=== PATIENT | female | born 1995 | race Caucasian/White ===

== ENCOUNTER 2017-01-05 09:54 | Inpatient (IN) | payer SELFPAY ==
[2017-01-05] MEDS ORDERED: MISOPROSTOL 0.2 MG TABLET ONE (11:40)
[2017-01-05] MEDS ORDERED: OXYTOCIN/NORMAL SALINE 20 UNIT/1,000 ML RTUINJ ONE (11:40)
[2017-01-05] MEDS ORDERED: LIDOCAINE 1% INJ-PF (10 MG/ML) 30 ML SDV ONE (11:40)
[2017-01-05] MEDS ORDERED: PENICILLIN G-K 5 MILLION UNIT VIAL ONE (11:43)
[2017-01-05 12:23] LABS: ADD HIVPANEL? NO; HIV (1 AND 2) ANTIBODY NEGATIVE (NEGATIVE)
[2017-01-05] MEDS ORDERED: PENICILLIN G POTASSIUM 5,000,000 UNIT in DEXTROSE 5%-WATER 100 ML IV ONE (13:18)
[2017-01-05] MEDS ORDERED: MAGNESIUM HYDROXIDE SUSP 30 ML UDCUP PO PRN (14:13)
[2017-01-05] MEDS ORDERED: PROMETHAZINE HCL 25 MG SUPP.RECT PR PRN (14:13)
[2017-01-05] MEDS ORDERED: PSEUDOEPHEDRINE HCL 30 MG TABLET PO PRN (14:13)
[2017-01-05] MEDS ORDERED: ACETAMINOPHEN WITH CODEINE #3 TABLET PO PRN ×2 (14:13)
[2017-01-05] MEDS ORDERED: NA PHOS,M-B/NA PHOS,DI-BA (ADULT) 133 ML ENEMA PR PRN (14:13)
[2017-01-05] MEDS ORDERED: OXYTOCIN/NORMAL SALINE 20 UNIT/1,000 ML RTUINJ IV PRN (14:13)
[2017-01-05] MEDS ORDERED: ZOLPIDEM TARTRATE 5 MG TABLET PO PRN (14:13)
[2017-01-05] MEDS ORDERED: BENZOCAINE/MENTHOL AEROSOL SPRAY 56 ML TOP PRN (14:13)
[2017-01-05] MEDS ORDERED: MEASLES,MUMPS&RUBELLA VACC/PF 0.5 ML VIAL SUBCUT PRN (14:13)
[2017-01-05] MEDS ORDERED: DIPH/PERTUSS(ACELL)/TETANUS VAC/PF 0.5 ML SYR (>=10YO) IM PRN (14:13)
[2017-01-05] MEDS ORDERED: PROMETHAZINE HCL INJ 25 MG/1 ML VIAL IV PRN (14:13)
[2017-01-05] MEDS ORDERED: PROMETHAZINE HCL 25 MG TABLET PO PRN (14:13)
[2017-01-05] MEDS ORDERED: ACETAMINOPHEN 650 MG SUPP.RECT PR PRN (14:13)
[2017-01-05] MEDS ORDERED: GLYCERIN/WITCH HAZEL LEAF 1 EACH MED..PAD TP PRN (14:13)
[2017-01-05] MEDS ORDERED: DIBUCAINE 1% OINTMENT 28 GM TP PRN (14:13)
[2017-01-05] MEDS ORDERED: DIPHENHYDRAMINE HCL 25 MG CAPSULE PO PRN (14:13)
[2017-01-05 14:27] LABS: APPEARANCE,URINE CLOUDY; BILIRUBIN,URINE NEGATIVE (NEGATIVE); GLUCOSE, URINE NEGATIVE (NEGATIVE); KETONES,URINE 20 mg/dL (NEGATIVE); LEUKOCYTE ESTERASE,URINE NEGATIVE (NEGATIVE); NITRITE,URINE NEGATIVE (NEGATIVE); PROTEIN,URINE NEGATIVE (NEGATIVE); URINE SPECIFIC GRAVITY 1.013; UROBILINOGEN,URINE NEGATIVE mg/dL (<2.0)
[2017-01-05 14:48] LABS: URINE BARBITURATES SCREEN NEGATIVE; URINE METHADONE SCREEN NEGATIVE; URINE OPIATES LOW NEGATIVE; URINE PHENCYCLIDINE SCREEN NEGATIVE
--- NOTE | 2017-01-05 14:51 | Delivery Summary ---
Del Sum A-C Datetime Report Generated by CPN: 01/05/2017 14:50 DELIVERY PERSONNEL DELIVERY PERSONNEL: [id number] Delivery Doctor:: Nano Ang CNM Nurse Slide Fastener Chain Assembler Certified:: Nano Ang CNM Labor and Delivery Nurse:: Jovany Monahan RNconsulting property manager Nurse:: Amalia De Dios RN Nursery Nurse:: Ondina Graves RN Nursery Nurse:: Beverly Shen RN Student Observers:: Final Inspector Paper Student Syrup Machine Laborer/OPERATIONS INTERN: Yuridia Gallegos, BUDGET RECORD CLERK Syrup Machine Laborer/OPERATIONS INTERN: Sonali Greenfield, ST MATERNAL INFORMATION Delivery Anesthesia: None Medications After Delivery: Pitocin Bolus-Please Comment; Pitocin Drip 20 Units/1000ml NSS Estimated Blood Loss (ml): 300 Maternal Complications: Precipitous Labor (<3hrs); Other Other Maternal Complications: No Care Provider Comments: delivery of viable male JARON spontaneous rupture of membranes with pushing clear nuchal x 1 tight right compound hand reduced infant to abdomen tactile stimulation elicits spont cry cord clamped and cut by FOB cord blood obtained placenta jain EBL 300 cc 2nd degree vaginal laceration repaired with 2.0 chromic gut with 1% lidocaine pt tolerated well nursery at bedside LABOR SUMMARY EDC: 12/27/2016 00:00 No. Babies in Womb: 1 Attempted: No Labor Anesthesia: None LABOR INFORMATION Reason for Induction: Not Applicable Onset of Labor: 01/05/2017 08:00 Complete Dilatation: 01/05/2017 12:14 Oxytocin: N/A Group B Beta Strep: Unknown Antibiotics # of Doses: 1 Antibiotics Time of Last Dose: 1150 Name of Antibiotic Given: PCN Steroids Given: None Reason Steroids Not Administered: Not Applicable Other Reason Not Administered: NA MEMBRANES Membranes Rupture Method: Artificial Rupture of Membranes: 01/05/2017 12:15 Length of Rupture (hr): 0.00 Amniotic Fluid Color: Clear Amniotic Fluid Amount: Moderate Amniotic Fluid Odor: Normal STAGES OF LABOR Stage 1 hr: 4 Stage 1 min: 14 Stage 2 hr: 0 Stage 2 min: 1 Stage 3 hr: 0 Stage 3 min: 3 Total Time in Labor hr: 4 Total Time in Labor min: 18 VAGINAL DELIVERY Episiotomy: None Laceration Extension: Second Degree Laceration Type: Vaginal Other Laceration: Repaired per Emmel CNM Laceration Repair: Yes Sponge Count Correct: N/A Sharps Count Correct: N/A CSECTION DELIVERY Primary Indication: N/A Secondary Indication: N/A CSection Incidence: N/A Labor: N/A Elective: N/A CSection Incision: N/A BABY A INFORMATION Infant Delivery Date/Time: 01/05/2017 12:15 Method of Delivery: Vaginal Born in Route : No : N/A Forceps: N/A Vacuum Extraction: N/A Shoulder Dystocia : No PRESENTATION/POSITION BABY A Presentation: Cephalic Cephalic Presentation: Vertex Vertex Position: OA Breech Presentation: N/A PLACENTA INFORMATION BABY A Placenta Delivery Time : 01/05/2017 12:18 Placenta Method of Delivery: Spontaneous Placenta Status: Delivered SCORES BABY A Heart Rate 1 min: >100 bpm Resp Effort 1 min: Good Cry Reflex Irritability 1 min: Cough or Sneeze or Pulls Away Muscle Tone 1 min: Active Motion Color 1 min: Blue/Pale Resuscitation Effort 1 min: Tactile Stimulation SCORE 1 MIN: 8 Heart Rate 5 min: >100 bpm Resp Effort 5 min: Good Cry Reflex Irritability 5 min: Cough or Sneeze or Pulls Away Muscle Tone 5 min: Active Motion Color 5 min: Body [place], Extremities Blue Resuscitation Effort 5 min: N/A SCORE 5 MIN: 9 INFORMATION BABY A Gestational Age at Delivery: 41.2 Gestational Status: Late Term- 41- 41.6 Weeks Outcome : Liveborn Infant Condition : Stable Infant Sex: Male IDENTIFICATION BABY A Infant Verification Date/Time: 01/05/2017 13:00 ID Band Number: [id number] Mother's Name Verified: Yes RN Verifying : V Monk RN Additional Verifying Personnel: C Anaplan RN WEIGHT/LENGTH BABY A Birthweight (gm): 3520 Infant Weight (lb): 7 Weight (oz): 12 Length (in): 20.50 Length (cm): 52.07 CORD INFORMATION BABY A No. Cord Vessels: 3 Nuchal Cord : Around Neck x1, Tight Cord Blood Taken: Yes-For Storage (Mom's Blood type +) Banking/Donate Info: Unsure of blood type at this time Suction: Mouth; Nose ASSESSMENT BABY A Infant Complications: Multiple Variable Decels Complications- Other: No care Physical Findings at Delivery: Bruising Physical Findings- Other: Facial Bruising Respirations: Appears Normal Skin to Skin: Yes Skin to Skin Time (min): 90 Research Rn Spec/ALS Called : No Transferred To: Remains with Mother BABY B INFORMATION : N/A SIGNATURES Assignment: DO Elo Rm: with User ID: [email or web address] : with User ID: [email or web address]
--- NOTE | 2017-01-05 14:57 | Admission Physical ---
Datetime Report Generated by CPN: 01/05/2017 14:57 CURRENT ADMISSION Chief Complaint: Uterine Contractions Indication for Induction: Not Applicable Admit Plan: Admit to Unit; Initiate Labor Protocol ALLERGIES Medication Allergies: No Medication Allergies: No Known Allergies (01/05/2017) Latex: No Latex Allergies Food Allergies: none OBSTETRICAL HISTORY EDC: 12/27/2016 00:00 : 2 Para: 1 Term: 1 : 0 SAB: 0 IAB: 0 Livin Cesareans: 0 Gestational Diabetes: No Rh Sensitization: No Incompetent Cervix: No DREW: No Infertility: No ART Treatment: No Uterine Anomaly: No IUGR: No Hx Previous C/S: No Macrosomia: No Hx Loss/Stillborn: No PIH: No Hx : No Placenta Previa/Abruption: No Depression/PP Depression: No Post Hemorrhage: No Current Procedures: Ultrasound Obstetrical History Comments: GI- 7lbs 8 oz - no care gave baby up for adoption G2- current - no care SEE RECORDS Alcohol: No Marijuana : No Cocaine: No Other Illicit Drugs: No Cigarettes: Never Smoker. [id number] MEDICAL HISTORY Diabetes: No Blood Transfusion: No Pulmonary Disease (Asthma, TB): No Breast Disease: No Hypertension: No Software Support Engineer Surgery: No Heart Disease: No Hosp/Surgery: No Autoimmune Disorder: No Anesthetic Complications: No Kidney Disease: No Abnormal Pap Smear: No Neuro/Epilepsy: No Psychiatric Disorders: No Other Medical Diseases: No Hepatitis/Liver Disease: No Significant Family History: No Varicosities/Phlebitis: No Trauma/Violence : No Thyroid Dysfunction: No INFECTIOUS HISTORY Gonorrhea: Unknown Genital Herpes: Unknown Chlamydia: Unknown Tuberculosis: Unknown Syphilis: Unknown Hepatitis: Unknown HIV/AIDS Exposure: Unknown Rash or Viral Illness: No HPV: Unknown PHYSICAL EXAM General: Normal HEENT: Normal Neurologic: Normal Thyroid: Normal Heart: Normal Lungs: Normal Breast: Normal Back: Normal Abdomen: Normal Genitourinary Exam: Normal Extremities: Normal DTRs: Normal Pelvic Type: Adequate Vital Signs: Reviewed MEMBRANES Membranes: Ruptured FETUS A EGA: 41.2 Monitoring: External US Variability: Moderate 6-25bpm Decelerations: None FHR Category: Category I Presentation: Vertex Admit Comment: 21 yo presents in active labor no care only had a 4D pt sure of LMP came in pushing PLANS FOR LABOR AND DELIVERY Labor and Delivery: None Pain Management: Natural Feeding Preference: Breast Benefit of Breast Feed Discussed: Yes Circumcision: Yes INFORMED CONSENT Informed Consent Obtained: Vaginal Delivery; Risks, Benefits and Alternatives Discussed Assignment: Shahid Vargas DO Signature: with User ID: [email or web address] : with User ID: [email or web address]
[2017-01-05] MEDS: DOCUSATE SODIUM 100 MG CAPSULE PO SCH (17:44)
[2017-01-05] MEDS: FERROUS SULFATE 325 MG TABLET PO SCH (17:45)
[2017-01-05 19:00] LABS: CHLAM PCR NOT DETECTED (NOT DETECT)
[2017-01-05] MEDS: FAMOTIDINE 20 MG TABLET PO SCH (22:03)
[2017-01-05] MEDS: IBUPROFEN 800 MG TABLET PO SCH (22:03)
[2017-01-06] MEDS: IBUPROFEN 800 MG TABLET PO SCH ×3 (05:06→21:13)
[2017-01-06 05:40] LABS: HEPATITIS C VIRUS AB <0.1 s/co ratio (0.0-0.9)
[2017-01-06 07:06] LABS: HEMATOCRIT 32.4 % (36.0-47.0); HEMOGLOBIN 10.6 g/dL (12.0-15.5); HGB HCT DIFFERENCE -0.6; MEAN CORPUSCULAR HEMOGLOBIN 28.2 pg (27.0-33.4); MEAN CORPUSCULAR HGB CONC 32.7 g/dL (32.0-36.0); MEAN CORPUSCULAR VOLUME 86 fl (80-97); RED BLOOD COUNT 3.75 10^6/uL (3.72-5.28); RED CELL DISTRIBUTION WIDTH 16.1 % (11.5-14.0); WHITE BLOOD COUNT 14.5 10^3/uL (4.0-10.5)
--- NOTE | 2017-01-06 09:37 | PDOC PROGRESS REPORT ---
Subjective-OB Subjective: Post Delivery Day: 1 21 year old. Denies any needs at this time, states lochia is stable pain, well controlled, voiding without difficulty, bonding with baby well. Physical Exam (OB) Vital Signs: Temp Pulse Resp BP Pulse Ox 97.7 F 71 16 109/60 100 01/06/17 07:59 01/06/17 07:59 01/06/17 07:59 01/06/17 07:59 01/06/17 07:59 Intake & Output 01/05/17 01/06/17 01/07/17 06:59 06:59 06:59 Weight 83.7 kg - PIH/Pre-Eclampsia DTR's: 2 + Clonus: Negative Headache: Absent Epigastric Pain: No Visual Changes: No - Lochia Lochia Amount: Small 10-25 ml Lochia Color: Rubra/Red - Abdomen Description: Soft, Round Hernia Present: No Fundal Description: Firm Fundal Height: u/u - u/2 Objective-Diagnostic Laboratory: 01/06/17 06:51 01/05/17 01/05/17 01/06/17 10:57 12:05 06:51 WBC 14.5 H RBC 3.75 Hgb 10.6 L Hct 32.4 L MCV 86 MCH 28.2 MCHC 32.7 RDW 16.1 H Plt Count 329 Urine Color YELLOW Urine Appearance CLOUDY Urine pH 7.0 Ur Specific [place] 1.013 Urine Protein NEGATIVE Urine Glucose (UA) NEGATIVE Urine Ketones 20 H Urine Blood MODERATE H Urine Nitrite NEGATIVE Ur Leukocyte Esterase NEGATIVE Blood Type AB POSITIVE Antibody Screen NEGATIVE Assessment and Plan(PN) - Assessment and Plan (1) Vaginal delivery Is this a current diagnosis for this admission?: Yes Plan: routine pp care. d/c farm planner no pnc - Time Spent with Patient Time with patient: Less than 15 minutes Critical Time spent with patient: Less than 15 minutes Medications reviewed and adjusted accordingly: Yes - Disposition Anticipated Discharge: Home Within: within 24 hours
[2017-01-06] MEDS: FERROUS SULFATE 325 MG TABLET PO SCH ×2 (09:38→17:07)
[2017-01-06] MEDS: FAMOTIDINE 20 MG TABLET PO SCH ×2 (09:38→21:13)
[2017-01-06] MEDS: PRENATAL VITAMIN W-O CA NO5/FE FUMARATE/FA CAPSULE PO SCH (09:38)
[2017-01-06] MEDS: DOCUSATE SODIUM 100 MG CAPSULE PO SCH ×2 (09:38→17:07)
[2017-01-06] MEDS: SENNOSIDES/DOCUSATE 8.6-50 MG 1 EACH TABLET PO SCH (09:38)
[2017-01-07] MEDS: IBUPROFEN 800 MG TABLET PO SCH ×2 (06:00→14:53)
--- NOTE | 2017-01-07 06:46 | PDOC DISCHARGE SUMMARY ---
Final Diagnosis Discharge Date: 01/07/17 - Final Diagnosis (1) Vaginal delivery Is this a current diagnosis for this admission?: Yes Discharge Data - Discharge Medication Home Medications: Docusate Sodium [Colace 100 mg Capsule] 100 mg PO BID #60 capsule 01/07/17 Ferrous Sulfate [Feosol 325 mg Tablet] 325 mg PO BID #60 tablet 01/07/17 Ibuprofen [Motrin 800 mg Tablet] 800 mg PO Q8 #60 tablet 01/07/17 Gestational Age: 41.2 Reason(s) for Admission: Onset of Labor, Other Admission Note: no care Procedures: NST Intrapartum Procedure(s): Spontaneous Vaginal Delivery Complication(s): Laceration-Vaginal Laceration-Degree: 2nd - Data Baby 1 Male at 1 minute: 8 at 5 minutes: 9 Weight: 3520 kg Home with Mother: Yes Complications: No - Diagnosis Test Laboratory: Temp Pulse Resp BP Pulse Ox 98.2 F 75 18 123/64 99 01/06/17 19:16 01/06/17 19:16 01/06/17 19:16 01/06/17 19:16 01/06/17 19:16 01/05/17 01/06/17 12:05 06:51 RBC 3.75 Hgb 10.6 L Hct 32.4 L Urine Opiates Screen NEGATIVE - Discharge information/Instructions Discharge Activity: Activity As Tolerated, No Lifting Over 10 Pounds, Pelvic Rest, No tub bath Discharge Diet: Regular Disposition: HOME, SELF-CARE Follow up with: [facility] in: [place]
[2017-01-07 08:42] VITALS: BP 106/57
[2017-01-07] MEDS: FAMOTIDINE 20 MG TABLET PO SCH (10:13)
[2017-01-07] MEDS: FERROUS SULFATE 325 MG TABLET PO SCH ×2 (10:13→17:48)
[2017-01-07] MEDS: SENNOSIDES/DOCUSATE 8.6-50 MG 1 EACH TABLET PO SCH (10:13)
[2017-01-07] MEDS: DOCUSATE SODIUM 100 MG CAPSULE PO SCH ×2 (10:13→17:48)
[2017-01-07] MEDS: PRENATAL VITAMIN W-O CA NO5/FE FUMARATE/FA CAPSULE PO SCH (10:13)
== END 2017-01-07 18:11 | disposition home or self-care (01) | DRG 775 ==
LOC: LC 09:54 → LR 11:33 → 2N 14:56
PROVIDERS: ADMIT Obstetrics & Gynecology; ATTEND Obstetrics & Gynecology
PROC: 10E0XZZ Delivery of Products of Conception, External Approach (ICD-10-PCS; principal; 2017-01-05)
PROC: 0KQM0ZZ Repair Perineum Muscle, Open Approach (ICD-10-PCS; 2017-01-05)
PROC: 10907ZC Drainage of Amniotic Fluid, Therapeutic from Products of Conception, Via Natural or Artificial Opening (ICD-10-PCS; 2017-01-05)
PROC: 4A1HXCZ Monitoring of Products of Conception, Cardiac Rate, External Approach (ICD-10-PCS; 2017-01-05)
DX: O48.0 Post-term pregnancy (principal); O70.1 Second degree perineal laceration during delivery; O62.3 Precipitate labor; O69.1XX0 Labor and delivery complicated by cord around neck, with compression, not applicable or unspecified; O32.6XX0 Maternal care for compound presentation, not applicable or unspecified; O76 Abnormality in fetal heart rate and rhythm complicating labor and delivery; Z3A.41 41 weeks gestation of pregnancy; Z37.0 Single live birth
CPT/HCPCS: 36415; 80307; 81005; 85027; 86592; 86701; 86762; 86803; 86804; 86850; 86900; 86901; 87340; 87491; 87591; 88307; 90715; J2540; J2590; J3490

== ENCOUNTER 2020-03-04 16:30 | Outpatient (CLI) | payer MEDICAID ==
--- NOTE | 2020-03-04 19:36 | Non Stress Test Report ---
Non Stress Test Datetime Report Generated by CPN: 03/04/2020 19:36 DEMOGRAPHIC Test Number: 1 EGA NST: 40.3 MONITORING Monitor Explained: Monitor Explained; Test Explained; Patient Verbalized Understanding (Annotations: Data stored by CPN on behalf of user) Time on Monitor: 03/04/2020 16:42 Time off Monitor: 03/04/2020 18:25 NST Duration: 103 NST INTERVENTIONS NST Interventions: PO Hydration; Reposition Patient Physician Notified NST: Saunders MD BABY A: [id number] BABY A Movement : Present Contraction Frequency : None FHR Baseline : 130 Accelerations : 15X15 Decelerations : None Variability : Moderate 6-25bpm NST Review: Meets Criteria for Reactive NST NST Review and Verified By : Dixie Camp RNC NST Results: Reactive NST REPORT Report Trigger: Send Report
== END 2020-03-04 18:30 | disposition home or self-care (01) ==
LOC: LC 16:30
PROVIDERS: ATTEND Obstetrics & Gynecology
DX: O24.410 Gestational diabetes mellitus in pregnancy, diet controlled (principal); Z3A.40 40 weeks gestation of pregnancy
CPT/HCPCS: 59025

== ENCOUNTER 2020-03-11 07:15 | Inpatient (IN) | payer MEDICAID ==
[2020-03-11] MEDS: RINGERS SOLUTION,LACTATED 1,000 ML IV PRN ×2 (07:59→12:29)
[2020-03-11] MEDS ORDERED: OXYTOCIN/0.9 % SODIUM CHLORIDE 30 UNIT/500 ML RTUINJ ONE (08:21)
[2020-03-11] MEDS ORDERED: LIDOCAINE 1% INJ-PF (10 MG/ML) 30 ML SDV ONE (08:21)
[2020-03-11] MEDS ORDERED: MISOPROSTOL 0.2 MG TABLET ONE (08:21)
[2020-03-11] MEDS ORDERED: OXYTOCIN 10 UNIT/ML VIAL ONE (08:21)
[2020-03-11] MEDS ORDERED: RINGERS SOLUTION,LACTATED 1,000 ML IV ONE (08:44)
[2020-03-11] MEDS ORDERED: OXYTOCIN/0.9 % SODIUM CHLORIDE 30 UNIT/500 ML RTUINJ IV PRN ×2 (08:47→14:45)
--- NOTE | 2020-03-11 09:00 | Admission Physical ---
Datetime Report Generated by CPN: 03/11/2020 09:00 CURRENT ADMISSION Hx Assessment: The History has been Reviewed and is Current Chief Complaint: Scheduled Induction of Labor Chief Complaint Other: at 41.3 wks EGA for IOL d/t post dates Reports good FM, NO LOF or VB Indication for Induction: Postterm Admit Impression : Postterm, Intrauterine Admit Plan: Admit to Unit; Initiate Labor Induction Protocol ALLERGIES Medication Allergies: No Medication Allergies: No Known Allergies (03/11/2020) Latex: No Latex Allergies OBSTETRICAL HISTORY EDC: 03/01/2020 00:00 : 3 Para: 2 Term: 2 : 0 SAB: 0 IAB: 0 Ectopic: 0 Livin Cesareans: 0 VBACs: 0 Multiple Births: 0 Gestational Diabetes: Yes Rh Sensitization: No Incompetent Cervix: No DREW: No Infertility: No ART Treatment: No Uterine Anomaly: No IUGR: No Hx Previous C/S: No Macrosomia: No Hx Loss/Stillborn: No PIH: No Hx : No Placenta Previa/Abruption: No Depression/PP Depression: No PTL/PROM: No Post Hemorrhage: No Current Procedures: Ultrasound Obstetrical History Comments: G-1 female G-2 male G-3 GDM diet controlled SEE RECORDS Alcohol: No Marijuana : No Cocaine: No Other Illicit Drugs: No Cigarettes: Never Smoker. [id number] MEDICAL HISTORY Diabetes: No Diabetes Type: Gestational Diabetes Blood Transfusion: No Pulmonary Disease (Asthma, TB): No Breast Disease: No Hypertension: No Appellate Conferee Surgery: No Heart Disease: No Hosp/Surgery: Yes Autoimmune Disorder: No Anesthetic Complications: Unknown Kidney Disease: No Abnormal Pap Smear: No Neuro/Epilepsy: No Psychiatric Disorders: No Other Medical Diseases: No Hepatitis/Liver Disease: No Significant Family History: No Varicosities/Phlebitis: No Trauma/Violence : No Thyroid Dysfunction: No Medical History Comments: No anesthesia INFECTIOUS HISTORY Gonorrhea: No Genital Herpes: No Chlamydia: No Tuberculosis: No Syphilis: No Hepatitis: No HIV/AIDS Exposure: No Rash or Viral Illness: No HPV: No PHYSICAL EXAM General: Normal HEENT: Normal Neurologic: Normal Thyroid: Normal Heart: Normal Lungs: Normal Breast: Normal Back: Normal Abdomen: Normal Genitourinary Exam: Normal Extremities: Normal DTRs: Normal Pelvic Type: Adequate Vital Signs: Reviewed; Within Normal Limits VAGINAL EXAM Dilatation: 3 Effacement: 60 Station: -1 Contraction Comments: no regular MEMBRANES Membranes: Intact FETUS A EGA: 41.3 Monitoring: External US FHR- Baseline: 135 Variability: Moderate 6-25bpm Accelerations: 15X15 FHR Category: Category I Presentation: Vertex Admit Comment: at 41.3 wks EGA for IOL due to post dates -Admit to LDR -CEFM and toco -NPO and IVFs : LR at 125 cc/hr after bolus of 1 liter -GBS negative -Desires natural delivery -Anticipate PLANS FOR LABOR AND DELIVERY Labor and Delivery: None Pain Management: Natural Feeding Preference: Breast Benefit of Breast Feed Discussed: Yes Circumcision: N/A INFORMED CONSENT Informed Consent Obtained: Vaginal Delivery; Section Delivery; Vacuum/Forceps Assist; Risks, Benefits and Alternatives Discussed Signature: with User ID: Tommy : with User ID: Tommy
[2020-03-11 09:03] LABS: APPEARANCE,URINE CLOUDY; BILIRUBIN,URINE NEGATIVE (NEGATIVE); COLOR,URINE YELLOW; GLUCOSE, URINE NEGATIVE (NEGATIVE); KETONES,URINE NEGATIVE (NEGATIVE); LEUKOCYTE ESTERASE,URINE NEGATIVE (NEGATIVE); NITRITE,URINE NEGATIVE (NEGATIVE); PROTEIN,URINE NEGATIVE (NEGATIVE); URINE SPECIFIC GRAVITY 1.017; UROBILINOGEN,URINE NEGATIVE mg/dL (<2.0)
[2020-03-11 09:13] LABS: ABSOLUTE EOSINOPHILS # (AUTO) 0.1 10^3/uL (0.0-0.6); ABSOLUTE LYMPHOCYTES (AUTO) 1.8 10^3/uL (0.5-4.7); ABSOLUTE MONOCYTES (AUTO) 0.9 10^3/uL (0.1-1.4); ABSOLUTE NEUT (AUTO) 7.6 10^3/uL (1.7-8.2); BASOPHILS % (AUTO) 0.4 % (0-2); EOSINOPHILS % (AUTO) 1.1 % (0-6); HEMATOCRIT 33.5 % (36.0-47.0); HEMOGLOBIN 11.4 g/dL (12.0-15.5); LYMPHOCYTES % (AUTO) 17.6 % (13-45); MEAN CORPUSCULAR HGB CONC 33.9 g/dL (32.0-36.0); MEAN CORPUSCULAR VOLUME 88 fl (80-97); MONOCYTES % (AUTO) 8.2 % (3-13); PLATELET COUNT 251 10^3/uL (150-450); RED BLOOD COUNT 3.79 10^6/uL (3.72-5.28); RED CELL DISTRIBUTION WIDTH 14.6 % (11.5-14.0); SEGMENTED NEUTROPHILS % (AUTO) 72.7 % (42-78); TOTAL CELLS COUNTED % (AUTO) 100 %; WHITE BLOOD COUNT 10.4 10^3/uL (4.0-10.5)
[2020-03-11 09:19] LABS: URINE AMPHETAMINES SCREEN NEGATIVE; URINE BARBITURATES SCREEN NEGATIVE; URINE BENZODIAZEPINES SCREEN NEGATIVE; URINE COCAINE SCREEN NEGATIVE; URINE MARIJUANA (THC) SCREEN NEGATIVE; URINE METHADONE SCREEN NEGATIVE; URINE PHENCYCLIDINE SCREEN NEGATIVE
--- NOTE | 2020-03-11 09:24 | Warning Signs in Babies ---
VOD Warning Signs Datetime Report Generated by [facility]: 03/11/2020 09:24 VOD#[id number] -Warning Signs in Babies: Viewed with Parent(s)/Family (03/04/2020 16:34:Rebecca Driscoll RN)
--- NOTE | 2020-03-11 13:04 | L&D Progress Notes ---
PROGRESS NOTES Datetime Report Generated by CPN: 03/11/2020 13:04 PROGRESS NOTE Impression Other: IUP @ [id number] Procedures: Artificial ROM; Sterile Vag Exam Plan: Continue Present Management; Induction Informed Consent Obtained: Vaginal Delivery; Induction of Labor; Risks, Benefits and Alternatives Discussed Vital Signs : Reviewed; Within Normal Limits Comment: S: comfortable,breathing with contractions but no pain O:VSS, cat I tracing, pit @ 6mu/min, cervix and contractions as stated A: IUP @ 41w3d IOL secondary to post dates AROM- Large amount of clear fluid, tolerated well by both baby and patient P: continue present plan with pitocin, anticipate delivery, epidural prn VAGINAL EXAM Dilatation: 3 Effacement: 60 Station: -1 Contractions: q2min LAST VAGINAL EXAM-NURSING Nursing Exam Dilitation: 6.0 Nursing Exam Effacement: 90 Nursing Exam Station: 0 MEMBRANES Membranes: Ruptured Amniotic Fluid Color: Meconium, Light FETUS A Monitoring: External US Decelerations: None FHR Category: Category I : 41.3 Presentation: Vertex SIGNATURE SIGNATURE: [id number];[id number];[id number] Assignment: Gela Saunders MD Signature: with User ID: David : with User ID: David
[2020-03-11] MEDS ORDERED: MEASLES,MUMPS&RUBELLA VACC/PF 0.5 ML VIAL SUBCUT PRN (14:45)
[2020-03-11] MEDS ORDERED: BENZOCAINE/MENTHOL AEROSOL SPRAY 56 ML TOP PRN (14:45)
[2020-03-11] MEDS ORDERED: PROMETHAZINE HCL 25 MG SUPP.RECT PR PRN (14:45)
[2020-03-11] MEDS ORDERED: NA PHOS,M-B/NA PHOS,DI-BA (ADULT) 133 ML ENEMA PR PRN (14:45)
[2020-03-11] MEDS ORDERED: ACETAMINOPHEN WITH CODEINE #3 TABLET PO PRN ×2 (14:45)
[2020-03-11] MEDS ORDERED: DIPHENHYDRAMINE HCL 25 MG CAPSULE PO PRN (14:45)
[2020-03-11] MEDS ORDERED: DIBUCAINE 1% OINTMENT 28 GM TP PRN (14:45)
[2020-03-11] MEDS ORDERED: GLYCERIN/WITCH HAZEL LEAF 1 EACH MED..WIPE TP PRN (14:45)
[2020-03-11] MEDS ORDERED: PROMETHAZINE HCL INJ 25 MG/1 ML VIAL IV PRN (14:45)
[2020-03-11] MEDS ORDERED: ZOLPIDEM TARTRATE 5 MG TABLET PO PRN (14:45)
[2020-03-11] MEDS ORDERED: ACETAMINOPHEN 325 MG TABLET PO PRN (14:45)
[2020-03-11] MEDS ORDERED: DIPH/PERTUSS(ACELL)/TETANUS VAC/PF 0.5 ML SYR (>=10YO) IM PRN (14:45)
[2020-03-11] MEDS ORDERED: MAGNESIUM HYDROXIDE SUSP 30 ML UDCUP PO PRN (14:45)
[2020-03-11] MEDS ORDERED: ACETAMINOPHEN 650 MG SUPP.RECT PR PRN (14:45)
[2020-03-11] MEDS ORDERED: PSEUDOEPHEDRINE HCL 30 MG TABLET PO PRN (14:45)
[2020-03-11] MEDS ORDERED: PROMETHAZINE HCL 25 MG TABLET PO PRN (14:45)
[2020-03-11] MEDS ORDERED: IBUPROFEN 800 MG TABLET ONE (14:56)
[2020-03-11] MEDS ORDERED: BENZOCAINE/MENTHOL AEROSOL SPRAY 56 ML ONE (14:56)
[2020-03-11] MEDS: IBUPROFEN 800 MG TABLET PO SCH ×2 (15:10→21:17)
[2020-03-11] MEDS ORDERED: METHYLERGONOVINE MALEATE INJ/PF 0.2 MG/1 ML AMPULE ONE (15:41)
[2020-03-11] MEDS ORDERED: METHYLERGONOVINE MALEATE INJ/PF 0.2 MG/1 ML AMPULE IM ONE (15:42)
[2020-03-11] MEDS: FERROUS SULFATE 325 MG TABLET PO SCH (17:27)
[2020-03-11] MEDS: DOCUSATE SODIUM 100 MG CAPSULE PO SCH (17:27)
--- NOTE | 2020-03-11 19:01 | Delivery Summary ---
Del Sum A-C Datetime Report Generated by CPN: 03/11/2020 19:01 DELIVERY PERSONNEL DELIVERY PERSONNEL: [id number] Delivery Doctor:: Gela Saunders MD Labor and Delivery Nurse:: Rebecca Driscoll RNmental health social worker Nurse:: Dixie Marcial, RNC Hydroelectric Plant Technician/CUT OUT STITCHER: Yuridia Gallegos, DIRECTOR OF MARKETING [employer] PERFORMANCE ADS Hydroelectric Plant Technician/CUT OUT STITCHER: Sonali Greenfield, ST MATERNAL INFORMATION Delivery Anesthesia: None Medications After Delivery: Pitocin 30 Units in 500ml NS/D5W Meds After Delivery Comment: Pitocin at bolus following delivery of placenta per verbal order, then decreased to 334mL/hr at 1345 Estimated Blood Loss (ml): 150 Maternal Complications: Other Complication Details: GDM, postdates Provider Comments: Called to patients room for delivery as she was feeling pressure and need to push. She pushed through one contraction and delivered a viable female infant. Cord around arm. After delivery of the head the shoulders and rest of body followed easily. Baby vigorously crying. Cord clamping delayed for 30 seconds . After clamping and cutting cord, placed on Mother's Chest. Both stable LABOR SUMMARY EDC: 03/01/2020 00:00 No. Babies in Womb: 1 Attempted: No Labor Anesthesia: None LABOR INFORMATION Reason for Induction: Post Dates; Maternal Diabetes Complete Dilatation: 03/11/2020 13:26 Oxytocin: Induction Group B Beta Strep: negative Antibiotics # of Doses: 0 Steroids Given: None Reason Steroids Not Administered: Not Applicable MEMBRANES Membranes Rupture Method: Artificial Rupture of Membranes: 03/11/2020 10:21 Length of Rupture (hr): 3.17 Amniotic Fluid Color: Light Meconium Amniotic Fluid Amount: Large Amniotic Fluid Odor: None STAGES OF LABOR Stage 2 hr: 0 Stage 2 min: 5 Stage 3 hr: 0 Stage 3 min: 4 VAGINAL DELIVERY Episiotomy: None Laceration #1: Perineal Laceration Extension #1: Second Degree Laceration Repair: Yes Laceration Repair Note: with 3-0 chromic on an SH needle Sponge Count Correct: N/A Sharps Count Correct: N/A CSECTION DELIVERY Primary Indication: N/A Secondary Indication: N/A CSection Incidence: N/A Labor: N/A Elective: N/A CSection Incision: N/A BABY A INFORMATION Delivery Date/Time: 03/11/2020 13:31 Method of Delivery: Vaginal Nurse Controlled Delivery: No Born in Route : No : N/A Forceps: N/A Vacuum Extraction: N/A Shoulder Dystocia : No PRESENTATION/POSITION BABY A Presentation: Cephalic Cephalic Presentation: Vertex Vertex Position: Right Occipital Anterior Breech Presentation: N/A PLACENTA INFORMATION BABY A Placenta Delivery Time : 03/11/2020 13:35 Placenta Method of Delivery: Spontaneous Placenta Status: Delivered SCORES BABY A Heart Rate 1 min: >100 bpm Resp Effort 1 min: Good Cry Reflex Irritability 1 min: Cough or Sneeze or Pulls Away Muscle Tone 1 min: Active Motion Color 1 min: Blue/Pale Resuscitation Effort 1 min: Tactile Stimulation SCORE 1 MIN: 8 Heart Rate 5 min: >100 bpm Resp Effort 5 min: Good Cry Reflex Irritability 5 min: Cough or Sneeze or Pulls Away Muscle Tone 5 min: Active Motion Color 5 min: Body [place], Extremities Blue Resuscitation Effort 5 min: N/A SCORE 5 MIN: 9 INFANT INFORMATION BABY A Gestational Age at Delivery: 41.3 Gestational Status: Late Term- 41- 41.6 Weeks Infant Outcome : Liveborn Condition : Stable Sex: Female IDENTIFICATION BABY A Infant Verification Date/Time: 03/11/2020 13:42 ID Band Number: [id number] Mother's Name Verified: Yes Infant RN Verifying Infant: Dixie Camp RNC Additional Verifying Personnel: Rebecca Driscoll RNC WEIGHT/LENGTH BABY A Birthweight (gm): 3478 Weight (lb): 7 Infant Weight (oz): 11 Infant Length (in): 20.00 Length (cm): 50.80 CORD INFORMATION BABY A No. Cord Vessels: 3 Nuchal Cord : N/A Cord Blood Taken: Yes-For Storage (Mom's Blood type +) Suction: None ASSESSMENT BABY A Complications: None Physical Findings at Delivery: Within Normal Limits Skin to Skin: Yes Metal Building Assembler/ALS Called : No Transferred To: Remains with Mother BABY B INFORMATION : N/A SIGNATURES Signature: with User ID: Tommy : with User ID: [email or web address]
--- NOTE | 2020-03-11 19:01 | Birth Certificate Data ---
Cert Data Datetime Report Generated by CPN: 03/11/2020 19:01 CERTIFICATE DATA 47a. Care: Yes (03/04/2020 16:34:Rebecca Driscoll RN) 47b. Date of First Visit: 10/21/2019 00:00 (03/04/2020 16:34:Rebecca Driscoll RN) 47c. Date of Last Visit: 03/09/2020 00:00 (03/04/2020 16:34:Rebecca Driscoll RN) 47d. Number of Visits: 11 (03/04/2020 16:34:Rebecca Driscoll RN) 48a. Number of Prev Live Births: 2 (03/04/2020 16:34:HUGO Wray) 48b. Now Livin (03/04/2020 16:34:HUGO Wray) 48c. Live Births Now : 0 (03/04/2020 16:34:QS system process) 48e. Losses: 0 (03/04/2020 16:34:HUGO Wray) RISK FACTORS IN THIS 49a. Diabetes: No (03/04/2020 16:34:[facility], [facility]) Type of Diabetes: Gestational Diabetes (03/04/2020 16:34:[facility], [facility]) 49b. Hypertension: No (03/04/2020 16:34:[facility], [facility]) 49c. Previous Births: 0 (03/04/2020 16:34:[facility], [facility]) 49d. Stillborns: No (03/04/2020 16:34:[facility], [facility]) 49d. IUGR: No (03/04/2020 16:34:[facility], [facility]) 49e. Infertility Treatment: No (03/04/2020 16:34:[facility], [facility]) 49f. Previous Cesareans: 0 (03/04/2020 16:34:[facility], [facility]) Mother's Height 50b. Height Inches: 60 (03/11/2020 09:45:QS system process) Mother's Weight 51a. Pre- Weight (lbs): 175 (03/04/2020 16:34:Rebecca Driscoll RN) 51b. Weight at Delivery (lbs): 194 (03/11/2020 16:17:QS system process) 52. Dt Last Normal Menses Began: 05/26/2019 00:00 (03/04/2020 16:34:HUGO Wray) Infections Present/Treated 53a. Gonorrhea: No (03/04/2020 16:34:HUGO Wray) Results this Hospital Visit : Negative (03/04/2020 16:34:Rebecca Driscoll RN) 53b. Syphilis: No (03/04/2020 16:34:HUGO Wray) 53c. Chlamydia: No (03/04/2020 16:34:[facility]GO Wray) Results this Hospital Visit: Negative (03/04/2020 16:34:Rebecca Driscoll RN) 53d. Hepatitis B: No (03/04/2020 16:34:HUGO Wray) Results this Hospital Visit: Negative (03/04/2020 16:34:[facility] W[facility]) 53e. Hepatitis C: Unknown (03/04/2020 16:34:Rebecca Driscoll RN) 53h. Mother Tested for HBsAG: Yes (03/04/2020 16:34:[facility]ixie Marcial [facility]) 53j. Test Result: Negative (03/04/2020 16:34:Dixie Marcial [facility]) Obstetric Procedures 54a, b, c. Obstetric Procedures: Ultrasound (03/04/2020 16:34:Dixie Marcial [facility]) Cigarette Smoking Cigarette Smoking: Never Smoker. [id number] (03/04/2020 16:34:Rebecca Driscoll RN) 55a. 3 Months Before Preg - Ci (03/04/2020 16:34:Rebecca Driscoll RN) 55a. Packs: 0 (03/04/2020 16:34:Rebecca Driscoll RN) 55b. 1st Trimester of Preg- Ci (03/04/2020 16:34:Rebecca Driscoll RN) 55b. Packs: 0 (03/04/2020 16:34:Rebecca Driscoll RN) 55c. 2nd Trimester of Preg- Ci (03/04/2020 16:34:Rebecca Driscoll RN) 55c. Packs: 0 (03/04/2020 16:34:Rebecca Driscoll RN) 55d. 3rd Trimester of Preg- Ci (03/04/2020 16:34:Rebecca Driscoll RN) 55d. Packs: 0 (03/04/2020 16:34:Rebecca Driscoll RN) Onset of Labor 56a. PROM >12 Hrs: 3.17 (03/04/2020 16:34:QS system process) 57a. Induction of Labor: Induction (03/04/2020 16:34:Rebecca Driscoll RN) 57c. Non-Vertex Presentation A: Vertex (03/04/2020 16:34:Rebecca Driscoll RN) 57d. Steroids - Lung Mat: None (03/04/2020 16:34:Rebecca Driscoll RN) 57d. Steroids - Lung Mat: Not Applicable (03/04/2020 16:34:Rebecca Driscoll RN) 57f. Mat Chorio or Temp >100.4: 98.6 (03/04/2020 16:34:Rebecca Driscoll RN) 57g. Moderate/Heavy Meconium: Light Meconium (03/11/2020 10:21:Rebecca Driscoll RN) 57h. Intolerance of Labor: N/A (03/04/2020 16:34:Rebecca Driscoll RN) : N/A (03/04/2020 16:34:Rebecca Driscoll RN) 57i. Epidural/Spinal Anesthesia: None (03/04/2020 16:34:Rebecca Driscoll RN) Method of Delivery 58a. Forceps - Unsuccessful A: N/A (03/04/2020 16:34:Rebecca Driscoll RN) 58b. Vacuum - Unsuccessful A: N/A (03/04/2020 16:34:Rebecca Driscoll RN) 58c. Presentation at 58c. Presentation at - A : Vertex (03/04/2020 16:34:Rebecca Driscoll RN) 58c. Presentation at - A : N/A (03/04/2020 16:34:Rebecca Driscoll RN) 58c. Presentation at - A : Cephalic (03/11/2020 13:04:Rebecca Driscoll RN) Final Route and Method of Del 58d. Baby A Route/Delivery: Vaginal (03/11/2020 13:31:Rebecca Driscoll RN) 58e. Trial of Labor Attempted: No (03/04/2020 16:34:Rebecca Driscoll RN) 58e. Trial of Labor Attempted A: N/A (03/04/2020 16:34:Rebecca Driscoll RN) 58e. Trial of Labor Attempted B: N/A (03/04/2020 16:34:Rebecca Driscoll RN) Maternal Morbidity 59b. 3rd or 4th Degree Lacs: Perineal (03/04/2020 16:34:Rebecca Driscoll RN) 59b. 3rd or 4th Degree Lacs: Second Degree (03/04/2020 16:34:Rebecca Driscoll RN) Birthweight Baby A: 3478 (03/04/2020 16:34:Rebecca Driscoll RN) 60a. Pounds : 7 (03/04/2020 16:34:QS system process) 60b. Ounces: 11 (03/04/2020 16:34:QS system process) 61. GA at Delivery Baby A: 41.3 (03/04/2020 16:34:Rebecca Driscoll RN) : Late Term- 41- 41.6 Weeks (03/04/2020 16:34:QS system process) 62a. 5 Minute Baby A: 9 (03/04/2020 16:34:QS system process)
[2020-03-11] MEDS: METHYLERGONOVINE MALEATE 0.2 MG TABLET PO SCH (19:54)
[2020-03-11] MEDS: FAMOTIDINE 20 MG TABLET PO SCH (21:17)
[2020-03-12] MEDS: METHYLERGONOVINE MALEATE 0.2 MG TABLET PO SCH ×4 (01:10→20:36)
[2020-03-12] MEDS: IBUPROFEN 800 MG TABLET PO SCH ×3 (05:30→22:17)
[2020-03-12 08:52] LABS: HEMATOCRIT 31.2 % (36.0-47.0); HEMOGLOBIN 10.7 g/dL (12.0-15.5); MEAN CORPUSCULAR HEMOGLOBIN 30.4 pg (27.0-33.4); MEAN CORPUSCULAR HGB CONC 34.4 g/dL (32.0-36.0); MEAN CORPUSCULAR VOLUME 89 fl (80-97); PLATELET COUNT 275 10^3/uL (150-450); RED BLOOD COUNT 3.52 10^6/uL (3.72-5.28); RED CELL DISTRIBUTION WIDTH 14.9 % (11.5-14.0); WHITE BLOOD COUNT 12.6 10^3/uL (4.0-10.5)
[2020-03-12] MEDS: FAMOTIDINE 20 MG TABLET PO SCH ×2 (10:10→22:17)
[2020-03-12] MEDS: SENNOSIDES/DOCUSATE 8.6-50 MG 1 EACH TABLET PO SCH (10:10)
[2020-03-12] MEDS: FERROUS SULFATE 325 MG TABLET PO SCH ×2 (10:10→17:48)
[2020-03-12] MEDS: PRENATAL VITAMIN W DHA CAPSULE PO SCH (10:10)
[2020-03-12] MEDS: DOCUSATE SODIUM 100 MG CAPSULE PO SCH ×2 (10:10→17:48)
--- NOTE | 2020-03-12 16:42 | PDOC PROGRESS REPORT ---
Subjective-OB Progress Note for:: 03/12/20 Subjective: reports bleeding slowing, pain controlled with current meds. denies needs Physical Exam (OB) Vital Signs: Temp Pulse Resp BP Pulse Ox 97.7 F 75 17 108/57 L 99 03/12/20 07:22 03/12/20 07:22 03/12/20 07:22 03/12/20 07:22 03/12/20 07:22 Intake & Output 03/11/20 03/12/20 03/13/20 06:59 06:59 06:59 Intake Total 1163 500 Balance 1163 500 Weight 88.1 kg - Maternal Morbidity 59. Maternal Morbidity (serious complications experinced by the mother associated with labor and delivery: None of the above - Abdomen Description: Soft Hernia Present: No Fundal Description: Firm Fundal Height: u/u - u/2 - Abdominal Distension: No distension Tenderness: Nontender - Extremities Lower extremities: Mata's sign - neg Calf: Normal, Nontender Objective-Diagnostic Laboratory: 03/12/20 07:29 03/12/20 07:29 WBC 12.6 H RBC 3.52 L Hgb 10.7 L Hct 31.2 L MCV 89 MCH 30.4 MCHC 34.4 RDW 14.9 H Plt Count 275 Assessment and Plan(PN) - Time Spent with Patient Time with patient: Less than 15 minutes - Disposition Anticipated Discharge Disposition: Home, Self Care Anticipated Discharge Timeframe: within 24 hours
[2020-03-13] MEDS: METHYLERGONOVINE MALEATE 0.2 MG TABLET PO SCH (01:10)
[2020-03-13] MEDS: IBUPROFEN 800 MG TABLET PO SCH ×2 (06:42→14:12)
[2020-03-13] MEDS: FERROUS SULFATE 325 MG TABLET PO SCH (09:11)
[2020-03-13] MEDS: SENNOSIDES/DOCUSATE 8.6-50 MG 1 EACH TABLET PO SCH (09:12)
[2020-03-13] MEDS: PRENATAL VITAMIN W DHA CAPSULE PO SCH (09:12)
[2020-03-13] MEDS: FAMOTIDINE 20 MG TABLET PO SCH (09:12)
[2020-03-13] MEDS: DOCUSATE SODIUM 100 MG CAPSULE PO SCH (09:12)
--- NOTE | 2020-03-13 10:01 | PDOC DISCHARGE SUMMARY ---
Impression - Admit/DC Date/PCP Admission Date/Primary Care Provider: 03/11/20 07:15 Discharge Date: 03/13/20 - PP Day #2, pt doing well, UOB, voiding, AB+, rubella immune, - Additional Information Resuscitation Status: Full Code Discharge Diet: As Tolerated, Regular Discharge Activity: Activity As Tolerated, No Lifting Over 10 Pounds, Pelvic Rest Prescriptions: Ibuprofen [Motrin 800 mg Tablet] 800 mg PO Q8 #60 tablet Home Medications: Ferrous Sulfate [Feosol 325 mg Tablet] 325 mg PO BID #60 tablet 01/07/17 Pnv No.121/Iron/Folic Acid [ Multivitamin Tablet] 1 each PO DAILY 03/04/20 Ibuprofen [Motrin 800 mg Tablet] 800 mg PO Q8 #60 tablet 03/13/20 HPI Reason(s) for Admission: Induction of Labor Procedures: Ultrasound Intrapartum Procedure(s): Spontaneous Vaginal Delivery Complication(s): Laceration-Perineal Laceration-Degree: 2nd Hospital Course 59. Maternal Morbidity (serious complications experinced by the mother associated with labor and delivery: None of the above Results Laboratory Results: WBC 12.6 10^3/uL (4.0-10.5) H 03/12/20 07:29 RBC 3.52 10^6/uL (3.72-5.28) L 03/12/20 07:29 Hgb 10.7 g/dL (12.0-15.5) L 03/12/20 07:29 Hct 31.2 % (36.0-47.0) L 03/12/20 07:29 MCV 89 fl (80-97) 03/12/20 07:29 MCH 30.4 pg (27.0-33.4) 03/12/20 07:29 MCHC 34.4 g/dL (32.0-36.0) 03/12/20 07:29 RDW 14.9 % (11.5-14.0) H 03/12/20 07:29 Plt Count 275 10^3/uL (150-450) 03/12/20 07:29 Lymph % (Auto) 17.6 % (13-45) 03/11/20 08:50 Stokes % (Auto) 8.2 % (3-13) 03/11/20 08:50 Eos % (Auto) 1.1 % (0-6) 03/11/20 08:50 Baso % (Auto) 0.4 % (0-2) 03/11/20 08:50 Absolute Neuts (auto) 7.6 10^3/uL (1.7-8.2) 03/11/20 08:50 Absolute Lymphs (auto) 1.8 10^3/uL (0.5-4.7) 03/11/20 08:50 Absolute Monos (auto) 0.9 10^3/uL (0.1-1.4) 03/11/20 08:50 Absolute Eos (auto) 0.1 10^3/uL (0.0-0.6) 03/11/20 08:50 Absolute Basos (auto) 0.0 10^3/uL (0.0-0.2) 03/11/20 08:50 Seg Neutrophils % 72.7 % (42-78) 03/11/20 08:50 Urine Color YELLOW 03/11/20 07:25 Urine Appearance CLOUDY 03/11/20 07:25 Urine pH 7.0 (5.0-9.0) 03/11/20 07:25 Ur Specific [place] 1.017 03/11/20 07:25 Urine Protein NEGATIVE mg/dL (NEGATIVE) 03/11/20 07:25 Urine Glucose (UA) NEGATIVE mg/dL (NEGATIVE) 03/11/20 07:25 Urine Ketones NEGATIVE mg/dL (NEGATIVE) 03/11/20 07:25 Urine Blood NEGATIVE (NEGATIVE) 03/11/20 07:25 Urine Nitrite NEGATIVE (NEGATIVE) 03/11/20 07:25 Urine Bilirubin NEGATIVE (NEGATIVE) 03/11/20 07:25 Urine Urobilinogen NEGATIVE mg/dL (<2.0) 03/11/20 07:25 Ur Leukocyte Esterase NEGATIVE (NEGATIVE) 03/11/20 07:25 Urine Ascorbic Acid NEGATIVE (NEGATIVE) 03/11/20 07:25 Urine Opiates Screen NEGATIVE 03/11/20 07:25 Urine Methadone Screen NEGATIVE 03/11/20 07:25 Ur Barbiturates Screen NEGATIVE 03/11/20 07:25 Ur Phencyclidine Scrn NEGATIVE 03/11/20 07:25 Ur Amphetamines Screen NEGATIVE 03/11/20 07:25 U Benzodiazepines Scrn NEGATIVE 03/11/20 07:25 Urine Cocaine Screen NEGATIVE 03/11/20 07:25 U Marijuana (THC) Screen NEGATIVE 03/11/20 07:25 RPR NONREACTIVE (NONREACTIVE) 03/11/20 08:50 Blood Type AB POSITIVE 03/11/20 08:50 Antibody Screen NEGATIVE 03/11/20 08:50 Plan Plan of Treatment: d/c home, f/up with [facility] in 4 wks Time Spent: Less than 30 Minutes
[2020-03-13 11:09] VITALS: BP 124/67
== END 2020-03-13 14:08 | disposition home or self-care (01) | DRG 807 ==
LOC: LR 07:15 → 2S 16:17
PROVIDERS: ADMIT Obstetrics & Gynecology; ATTEND Obstetrics & Gynecology
PROC: 10E0XZZ Delivery of Products of Conception, External Approach (ICD-10-PCS; principal; 2020-03-11)
PROC: 0KQM0ZZ Repair Perineum Muscle, Open Approach (ICD-10-PCS; 2020-03-11)
DX: O48.0 Post-term pregnancy (principal); O24.420 Gestational diabetes mellitus in childbirth, diet controlled; O77.0 Labor and delivery complicated by meconium in amniotic fluid; Z3A.41 41 weeks gestation of pregnancy; Z37.0 Single live birth; O70.1 Second degree perineal laceration during delivery
CPT/HCPCS: 36415; 80307; 81005; 85025; 85027; 86592; 86850; 86900; 86901; J2210; J2590; J3490